=== PATIENT | male | born 1960 ===

== ENCOUNTER 2018-02-11 05:16 | Emergency (ER) | payer SELFPAY ==
--- NOTE | 2018-02-11 06:04 | EDPHY ---
H & P Time Seen by Provider: 02/11/18 05:36 HPI/ROS: CHIEF COMPLAINT: Right eyelid swelling, swelled shut come regarding infection or allergy HISTORY OF PRESENT ILLNESS: Medically stable previously healthy 57-year-old male who is visiting from the [place] he will in fact be moving here. He says he has had a longstanding history of swelling significantly in the setting of minor insect bites. However he has never experienced it to this degree nor on his face. He recalls last night around 9:30 p.m. experiencing a sense of discomfort of at the outer aspect of the right eyelid, and there had been an insect in the vicinity. He surmised that he was bitten by a bug. Whereas it had not swollen all that much, he did in fact take an antihistamine brought from the [place] with him he due to his propensity for swelling. He woke up this morning it was to the point were swollen shut. He has been able to pry open. However his vision is decreased because extent the swelling. He has had no significant discharge. He is emphatic that is not have a sensation of foreign body. There has been no fevers or chills or other trauma Prior, similar problem: But not on the eyelid Home treatment: Oral antihistamine REVIEW OF SYSTEMS: General: No difficulty with syncope or near syncope or palpitations or feeling faint HEENT: No swelling to the tongue, lips, hypopharynx, or throat. No change in her voice Respiratory: No cough, no dyspnea. No pain or difficulty swallowing Cardiovascular: No chest pain, no palpitations. Gastrointestinal: No vomiting, no abdominal pain. Musculoskeletal: No peripheral edema or swelling. A 10 system review of systems was performed and is negative except for the noted findings in the HPI. Smoking Status: Never smoked Physical Exam: Gen: Afebrile VSS Well nourished. Nontoxic. HEENT: Normocephalic. Eyes: PERRL. No conjunctival injection or pallor, or discharge. There is localized swelling to the upper eyelid which is compatible with the generalized edema rather than say angioedema. There is no warmth or redness associated with this. He the lateral aspect of the eyelid has a faint pink discoloration but no signs of retained stinger. Nose: No nasal discharge. Sinuses are nontender. Throat: Membranes are moist. No enanthem. Oropharynx is without erythema or exudate, or edema. Normal phonation. No stridor. Neck: Trachea is in the ML. No laryngeal tenderness. No adenopathy Lungs: Good air entry into both lungs. No air hunger. No respiratory distress. Skin: Good color, without pallor. There is no diaphoresis. Skin is warm and dry , without diaphoresis. Intact without rashes Constitutional: Initial Vital Signs Temperature (C) 37.1 C 02/11/18 05:27 Heart Rate 71 02/11/18 05:27 Respiratory Rate 16 02/11/18 05:27 Blood Pressure 159/96 H 02/11/18 05:27 O2 Sat (%) 95 02/11/18 05:27 O2 Delivery Mode Room Air Allergies/Adverse Reactions: No Known Allergies Allergy (Unverified 02/11/18 06:13) Home Medications: Medication Instructions Recorded NK [No Known Home Meds] 02/11/18 Medical Decision Making ED Course/Re-evaluation: We discussed the rationale using a short-acting antihistamine to reach a steady state quicker. Thereby he opted to take a dose of Benadryl home with them to take when he arrives home as is so early, drugs was closed. Differential Diagnosis: Diagnostic considerations include, but are not limited to, the following: Cellulitis, retained foreign body, insect sting localized reaction, angioedema - Data Points Medications Given: Discontinued Medications Diphenhydramine HCl (Benadryl) 50 mg PO EDNOW ONE Stop: 02/11/18 06:10 Last Admin: 02/11/18 06:12 Dose: 50 mg Departure - Departure Disposition: Home, Routine, Self-Care Clinical Impression: Local reaction to insect sting Qualifiers: Encounter type: initial encounter Injury intent: undetermined intent Qualified Code(s): T63.484A - Toxic effect of venom of other arthropod, undetermined, initial encounter Condition: Good Instructions: Marine Animal Bite or Sting (ED) Additional Instructions: For Antihistamine: Benadryl 50 mg, 4 times a day might work better as it is faster onset. Mind you , it can sedate you to the point you should not drive machinery or use equipment. Return if it becomes more red, extending beyound eyebrow to suggest it is becoming infected. Referrals: Alana Parson MD [Medical Doctor] - As per Instructions
[2018-02-11] MEDS ORDERED: diphenhydrAMINE 25 MG CAP PO ONE (06:09)
[2018-02-11 06:20] VITALS: BP 154/89
== END 2018-02-11 06:40 | disposition home or self-care (01) ==
LOC: CED 05:16
DX: T63.484A Toxic effect of venom of other arthropod, undetermined, initial encounter (principal)